=== PATIENT | female | born 1945 | race Caucasian/White ===

== ENCOUNTER → 2016-12-18 | Outpatient (CLI) | payer OTHER ==
[~2016-12-18] MED LIST: REGADENOSON 0.4 MG/5 ML SYRINGE ONE
== END | disposition home or self-care (01) ==
LOC: CFH 07:37
PROVIDERS: ATTEND Internal Medicine
DX: R94.31 Abnormal electrocardiogram [ECG] [EKG] (principal); R07.9 Chest pain, unspecified; E78.5 Hyperlipidemia, unspecified; R68.84 Jaw pain
CPT/HCPCS: 78452; 93017; A9502; J2785

== ENCOUNTER → 2017-07-17 | Outpatient (CLI) | payer OTHER ==
[~2017-07-17] MED LIST changes: +OMNIPAQUE 350 MG/ML, 150 ML BOTTLE ONE; -REGADENOSON 0.4 MG/5 ML SYRINGE ONE
== END | disposition home or self-care (01) ==
LOC: CFH 09:22
PROVIDERS: ATTEND Internal Medicine Gastroenterology
DX: R13.12 Dysphagia, oropharyngeal phase (principal); K59.00 Constipation, unspecified
CPT/HCPCS: 74220; Q9967

== ENCOUNTER → 2018-08-04 | Outpatient (CLI) | payer MEDICARE | END | disposition home or self-care (01) | LOC: RAD 10:02 | PROVIDERS: ATTEND Physician Assistant Surgical | DX: M41.84 Other forms of scoliosis, thoracic region (principal); M47.814 Spondylosis without myelopathy or radiculopathy, thoracic region | CPT/HCPCS: 72072 ==

== ENCOUNTER 2019-03-24 12:54 | Outpatient (CLI) | payer MEDICARE ==
[2019-03-24] MEDS ORDERED: OMNIPAQUE 350 MG/ML, 100ML BOTTLE ONE (14:34)
== END 2019-03-24 23:59 | disposition home or self-care (01) ==
LOC: CFH 12:54
PROVIDERS: ATTEND Internal Medicine Critical Care Medicine
DX: K38.8 Other specified diseases of appendix (principal); E03.9 Hypothyroidism, unspecified; E78.5 Hyperlipidemia, unspecified; N18.1 Chronic kidney disease, stage 1; E87.1 Hypo-osmolality and hyponatremia
CPT/HCPCS: 74178; 82565; Q9967